=== PATIENT | female | born 1990 | race Caucasian/White ===

== ENCOUNTER → 2017-03-08 | Outpatient (CLI) | payer OTHER ==
--- NOTE | 2017-03-08 14:07 | Diagnostic Imaging Report ---
INDICATION: Size and dates. TECHNIQUE: Multiple real-time grayscale images were obtained over the gravid uterus. COMPARISON: None. FINDINGS: There is a single living intrauterine . The biometry correlates with gestational age of 18 weeks 6 days. Fetus is in available presentation. There is normal volume of amniotic fluid. Placenta is anterior. No previa. Anatomical survey is unremarkable. Heart rate is 144 beats per minute and regular. Cervical length is 4.1 cm. IMPRESSION: Single living intrauterine with sonographically estimated gestational age of 18 weeks 6 days and estimated date of confinement of 08/03/2017. Biometrical measurements are as follows: Biparietal 4.2 cm, age 18 weeks 6 days. Head circumference 15.3 cm, age 18 weeks 3 days. Abdominal circumference 13.4 cm, age 19 weeks 0 days. Femur length 2.87 cm, age 2.87 weeks 2.87 days. Sonographic estimate age: 6 weeks 18 days. Sonographic estimated date of delivery: 6. Estimated Weight: 258 gm (+/- 38 gm). LMP percentile: 33%. heart rate: 18 beats per minute. number: 1 of 1. Dictated by: Dictated on workstation # [id number]
== END ==
LOC: RAD 12:56
PROVIDERS: ATTEND Obstetrics & Gynecology
DX: Z34.92 Encounter for supervision of normal pregnancy, unspecified, second trimester (principal); Z3A.18 18 weeks gestation of pregnancy
CPT/HCPCS: 76805

== ENCOUNTER 2017-07-25 00:53 | Inpatient (IN) | payer OTHER ==
[~2017-07-25] VITALS: Ht 162.6 cm; Wt 75.3 kg
[2017-07-25] VITALS (38 sets, daily range): BP systolic 108–191; BP diastolic 63–87
[2017-07-25] MEDS ORDERED: PREN-37 PO (01:11)
[2017-07-25] MEDS ORDERED: DOCU-143 PO (01:12)
[2017-07-25] MEDS ORDERED: D5 LR IV SOLUTION 1,000 ML IV ONE (02:04)
[2017-07-25] MEDS ORDERED: D5 LR IV SOLUTION 1,000 ML IV SCH (02:10)
[2017-07-25] MEDS ORDERED: SUFENTA 0.6MCG/ML BUPIVA 0.125 100 ML ONE (02:22)
[2017-07-25 02:27] LABS: BASOPHILS % (AUTO) 0 % (0-10); EOSINOPHILS # (AUTO) 0.1 10^3/uL (0.0-0.3); EOSINOPHILS % (AUTO) 1 % (0-10); HEMATOCRIT 40 % (35-52); HEMOGLOBIN 13.7 G/DL (11.5-16.0); LYMPHOCYTES # (AUTO) 2.2 X 10^3 (1.0-4.0); LYMPHOCYTES % (AUTO) 15 % (12-44); MEAN CORPUSCULAR HEMOGLOBIN 31 PG (25-34); MEAN CORPUSCULAR HGB CONC 35 G/DL (32-36); MEAN CORPUSCULAR VOLUME 89 FL (80-99); MEAN PLATELET VOLUME 11.6 FL (7.4-10.4); MONOCYTES # (AUTO) 1.1 X 10^3 (0.0-1.0); MONOCYTES % (AUTO) 8 % (0-12); NEUTROPHILS # (AUTO) 11.7 X 10^3 (1.8-7.8); NEUTROPHILS % (AUTO) 77 % (42-75); PLATELET COUNT 224 10^3/uL (130-400); RED BLOOD COUNT 4.46 10^6/uL (4.35-5.85); RED CELL DISTRIBUTION WIDTH 13.7 % (10.0-14.5); WHITE BLOOD COUNT 15.2 10^3/uL (4.3-11.0)
[2017-07-25] MEDS ORDERED: BUPIVACAINE 0.25% 30 ML (SENSORCAINE) VIAL ONE (02:33)
[2017-07-25] MEDS ORDERED: fentaNYL INJECTION 100 MCG/2 ML AMP ONE (02:33)
[2017-07-25] MEDS ORDERED: MINERAL OIL CONCENTRATE 99.9% 15 ML UDC TOP PRN (03:00)
[2017-07-25] MEDS ORDERED: LACTATED RINGERS 1,000 ML IV SCH (03:15)
[2017-07-25] MEDS ORDERED: diphenhydrAMINE 50 MG/ML INJ (BENADRYL) IV PRN (03:15)
[2017-07-25] MEDS ORDERED: EPIDURAL (SUFENTA 0.6MCG/ML BUPIVA 0.125%) 100 ML BAG EPI PRN (03:15)
[2017-07-25] MEDS ORDERED: ONDANSETRON 4 MG/2 ML (SDV) Z0FRAN IV PRN (03:15)
[2017-07-25] MEDS ORDERED: METOCLOPRAMIDE INJ 10 MG/2 ML (REGLAN) IV PRN (03:15)
[2017-07-25] MEDS ORDERED: NALOXONE 0.4 MG/ML 1 ML (NARCAN) VIAL IV PRN ×2 (03:15)
[2017-07-25] MEDS ORDERED: OXYTOCIN/NORMAL SALINE 500 ML IV ONE ×2 (05:13→06:35)
[2017-07-25] MEDS ORDERED: LIDOCAINE/EPI 2% 1:200,00 (XYLOCAINE) 10 ML VIAL ONE (05:42)
[2017-07-25] MEDS: OXYTOCIN/NORMAL SALINE 500 ML IV SCH ×2 (06:09→07:46)
--- NOTE | 2017-07-25 06:25 | OB Labor & Delivery Record ---
L&D History Date of Service Date of Service: July 25, 2017 History Expected Date of Delivery: Aug 07, 2017 Gestational Age in Weeks: 38 Hx : 1 Hx Para: 0 Complications Events: Routine care Operative Indications (Cesarea: N/A-Vaginal Delivery Intrapartal Events: None L&D Stage1 Stage One Onset of Labor - Date: July 25, 2017 Monitors and Tracing Monitor Mode: External Heart Rate: 135 Monitor Accelerations: Uniform Monitor Decelerations: None Station: -2 Member Certification Manager Variability: Average (6-10) Short Term Variability: Present Presentation: Vertex Vital Signs VS - Last 72 Hours, by Label 07/25/17 07/25/17 07/25/17 07/25/17 01:10 02:46 02:49 02:52 Temp 98.3 Pulse 69 85 90 88 Resp 18 18 18 18 B/P (MAP) 129/86 (100) 123/72 (89) 151/85 (107) 153/86 (108) Pulse Ox 100 100 100 O2 Delivery Room Air Room Air Room Air Room Air 07/25/17 07/25/17 07/25/17 07/25/17 02:55 02:58 03:01 03:04 Pulse 88 85 81 Resp 18 18 18 B/P (MAP) 142/77 (98) 141/83 (102) 126/66 (86) 127/68 (87) Pulse Ox 96 99 99 O2 Delivery Room Air Room Air Room Air 07/25/17 07/25/17 07/25/17 07/25/17 03:07 03:10 03:13 03:16 Pulse 77 80 77 75 Resp 18 18 18 18 B/P (MAP) 118/83 (95) 117/64 (81) 114/63 (80) 114/65 (81) Pulse Ox 99 99 98 98 O2 Delivery Room Air Room Air Room Air Room Air 07/25/17 07/25/17 07/25/17 07/25/17 03:23 03:30 03:35 03:40 Pulse 74 76 82 77 Resp 18 18 18 18 B/P (MAP) 115/65 (82) 110/64 (79) 109/65 (80) 112/64 (80) Pulse Ox 98 98 99 99 O2 Delivery Room Air Room Air Room Air Room Air 07/25/17 07/25/17 07/25/17 5/27/18 03:45 03:50 03:55 04:00 Pulse 77 78 77 78 Resp 18 B/P (MAP) 108/63 (78) 108/69 (82) 114/68 (83) 116/70 (85) Pulse Ox 99 99 99 99 O2 Delivery Room Air Room Air Room Air Room Air 07/25/17 07/25/17 07/25/17 04:15 04:30 04:45 Temp 98.9 Pulse 83 74 81 Resp 18 18 18 B/P (MAP) 120/74 (89) 124/67 (86) 125/75 (92) Pulse Ox 99 99 99 O2 Delivery Room Air Room Air Room Air Rupture of Membranes Spontaneous Ruture of Membrane: Yes Amniotic Membrane Fluid Desc.: Clear Vaginal Bleeding Description: Normal Show Induction/Anesthesia Epidural Cath Placement - Time: 250 L&D Stage2 Stage Two Stage II Date: July 25, 2017 Monitors and Tracing Monitor Mode: External Heart Rate: 135 Monitor Decelerations: Variable Member Certification Manager Variability: Average (6-10) Short Term Variability: Present Position: Right Occiput Anterior Presentation: Vertex Signs of Distress by FHT Signs of Distress repetitive variable FHR decels after pushing down into the 80s with return to baseline, maternal O2 was given via mask. Cord Descript/Complications Cord Vessel Description: 3 Vessels Delivery Type Delivery Method: Spontaneous Vaginal Anterior Shoulder: Right Episiotomy/Perineal Laceration Laceraction(s)/Extensions: Yes Episiotomy Description: Right Mediolateral Location Modifier: Right Sutures Used: Vicryl Degree (describe repair) RML repaired in usual fashion using 3-0 and 2-0 vicryl suture Condition of Infant Delivery 1 minute Comment: 8 5 minute Comment: 9 Notes Live female infant jennie 6lbs 1oz Condition of Infant Condition of : Living Exam: No Observed Abnormalities Resuscitation Resuscitation: N/A - Spontaneous Resp L&D Stage3 Stage Three Stage III Date: July 25, 2017 Pictocin Pitocin Administration Comment: 30 mu wide open at delivery of placenta Placenta Delivery Placenta Delivery: Spontaneous Delivery Summary Summary Estimated blood loss (mL): 350 Attending at delivery: John Hardin DO Condition of Delivery Examined: Cervix Examined, Uterus Explored Post Hemorrhage: No Condition of Mother stable Condition of Infant (s) stable FENECH,JOHN S DO July 25, 2017 6:25 am
--- NOTE | 2017-07-25 06:28 | History & Physical-OB ---
OB - Chief Complaint & HPI Date/Time Date of Admission: Date of Admission: July 25, 2017 at 2:06 am Time Seen by Provider: 05:30 Chief Complaint/History OB-Reason for Admission/Chief: Onset of Labor Hx : 1 Hx Para: 0 Expected Date of Delivery: Aug 02, 2017 Gestational Age in Weeks: 38 Gestational Age in Days: 6 Admission Nurse Assessment Rev: Yes History of Labs O neg Antibody neg RI RPR NR HBsAg NR HIV NR GC neg GBS neg Allergies and Home Medications Allergies Coded Allergies: No Known Drug Allergies (Unverified , 07/25/17) Home Medications Docusate Sodium 100 Mg Capsule, 100 MG PO DAILY PRN, (Reported) Vit/Iron Fumarate/FA 1 Each Tablet, 1 EACH PO DAILY, (Reported) Patient Home Medication List Home Medication List Reviewed: Yes OB - History Hx of Present Care: Yes Ultrasounds: Normal mid trimester US Obstetrical Complications: None Medical Complications: None Obstetrical History Hx : 1 Hx Para: 0 Hx Total # of Abortions (Spona: 0 Patient Past Medical History n/a Social History/Family History Recent Infectious Disease Expo: No Alcohol Use: Denies Use Recreational Drug Use: No Immunizations Hepatitis B: Yes OB - Admission Exam Physical Exam Vitals: Vital Signs 07/25/17 07/25/17 04:15 04:45 Temp 98.9 Pulse 81 Resp 18 B/P (MAP) 125/75 (92) Pulse Ox 99 O2 Delivery Room Air HEENT: NCAT Heart: Rhythm Normal Lungs: Clear Abdomen: Gravid Extremities: Normal Reflexes: Normal Cervical Dilatation: 4cm Effacement: 100% Station: -1 Membranes: Intact Heart Rate: 130's Accelerations: Accelerations Present Decelerations: No Decelerations Short Term Variability: Present Mcc Variability: Average (6-25) Contractions on Admission: < 5 Minutes Apart Intensity: Firm Labs Laboratory Tests Test 07/25/17 02:15 Range/Units White Blood Count 15.2 H 4.3-11.0 10^3/uL Red Blood Count 4.46 4.35-5.85 10^6/uL Hemoglobin 13.7 11.5-16.0 G/DL Hematocrit 40 35-52 % Mean Corpuscular Volume 89 80-99 FL Mean Corpuscular Hemoglobin 31 25-34 PG Mean Corpuscular Hemoglobin Concent 35 32-36 G/DL Red Cell Distribution Width 13.7 10.0-14.5 % Platelet Count 224 130-400 10^3/uL Mean Platelet Volume 11.6 H 7.4-10.4 FL Neutrophils (%) (Auto) 77 H 42-75 % Lymphocytes (%) (Auto) 15 12-44 % Monocytes (%) (Auto) 8 0-12 % Eosinophils (%) (Auto) 1 0-10 % Basophils (%) (Auto) 0 0-10 % Neutrophils # (Auto) 11.7 H 1.8-7.8 X 10^3 Lymphocytes # (Auto) 2.2 1.0-4.0 X 10^3 Monocytes # (Auto) 1.1 H 0.0-1.0 X 10^3 Eosinophils # (Auto) 0.1 0.0-0.3 10^3/uL Basophils # (Auto) 0.0 0.0-0.1 10^3/uL OB - Assessment/Plan/Diagnosis Assessment Assessment: active labor Admission Dx 26 yo @ 38.6 Active labor GBS neg Admission Status: Inpatient Order (span 2 midnights) Reason for Inpatient Admission: 26 yo @ 38.6 Active labor GBS neg Plan Plan: Expectant Management EDUARDA BOSE DO July 25, 2017 6:28 am
[2017-07-25] MEDS ORDERED: TETANUS,DIPTH,PERTUSS P/F (BOOSTRIX) 0.5 ML VIAL IM ONE (06:30)
[2017-07-25] MEDS ORDERED: WITCH HAZEL(TUCKS) 40 EA JAR TOP PRN (06:30)
[2017-07-25] MEDS ORDERED: HYDROcodone/APAP 5 MG/325 MG (LORTAB) TAB PO PRN (06:30)
[2017-07-25] MEDS ORDERED: DIBUCAINE (NUPERCAINAL) 1% OINT 30 GM TOP PRN (06:30)
[2017-07-25] MEDS ORDERED: MEASLES,MUMPS,RUBELLA 1 EA INJ SQ ONE (06:30)
[2017-07-25] MEDS ORDERED: BENZOCAINE/MENTHOL (DERMOPLAST) 56 ML CAN TP PRN (06:30)
--- NOTE | 2017-07-25 06:31 | Discharge Inst-Women's Service ---
Discharge Inst-Women's Serv Depart Medication/Instructions New, Converted or Re-Newed RX: RX on Chart Consults/Follow Up Additional Follow Up: Yes Orders/Referrals Dr. Bose in 6 weeks Activity Activity: Activity as Tolerated Driving Instructions: No Driving for 1 Week NO SMOKING: NO SMOKING Nothing Inside Vagina: No Douching, No [place], No Tampons Diet Discharge Diet: No Restrictions Symptoms to Report to : Bleeding Excessive, Pain Increased, Fever Over 101 Degrees F, Vaginal Bleeding Increase, Questions/Concerns For Any Problems or Questions: Contact Your Physician Skin/Wound Care Bathing Instructions: Shower (or sitz baths x 2 weeks) EDUARDA BOSE DO July 25, 2017 6:31 am
[2017-07-25] MEDS ORDERED: ACHD5005 PO (06:32)
[2017-07-25] MEDS ORDERED: DIBU30OI TOP (06:32)
[2017-07-25] MEDS ORDERED: Benzocaine/Menthol TP (06:32)
[2017-07-25] MEDS ORDERED: FERR325T18 PO (06:32)
[2017-07-25] MEDS ORDERED: IBUP-844 PO (06:32)
[2017-07-25] MEDS ORDERED: DOCU100C37 PO (06:32)
[2017-07-25] MEDS: DOCUSATE SODIUM 100 MG (COLACE) CAP PO SCH ×2 (08:58→20:51)
[2017-07-25] MEDS: IBUPROFEN 600 MG (MOTRIN) TAB PO SCH ×3 (08:58→20:50)
[2017-07-25] MEDS: FERROUS SULF 325 MG (IRON) TAB PO SCH (08:59)
[2017-07-25] MEDS: PRENATAL VITAMIN 1 EA TAB PO SCH (08:59)
[2017-07-25] MEDS ORDERED: CATHETER FLUSH 10 ML SYR IV SCH (14:00)
[2017-07-26 00:05] VITALS: BP 122/81
[2017-07-26 03:35] VITALS: BP 127/85
[2017-07-26] MEDS: IBUPROFEN 600 MG (MOTRIN) TAB PO SCH ×2 (03:37→08:37)
[2017-07-26 06:39] LABS: BASOPHILS % (AUTO) 0 % (0-10); EOSINOPHILS # (AUTO) 0.2 10^3/uL (0.0-0.3); EOSINOPHILS % (AUTO) 2 % (0-10); HEMATOCRIT 31 % (35-52); HEMOGLOBIN 10.2 G/DL (11.5-16.0); LYMPHOCYTES # (AUTO) 2.3 X 10^3 (1.0-4.0); LYMPHOCYTES % (AUTO) 18 % (12-44); MEAN CORPUSCULAR HEMOGLOBIN 30 PG (25-34); MEAN CORPUSCULAR HGB CONC 33 G/DL (32-36); MEAN CORPUSCULAR VOLUME 92 FL (80-99); MONOCYTES % (AUTO) 8 % (0-12); NEUTROPHILS # (AUTO) 9.7 X 10^3 (1.8-7.8); NEUTROPHILS % (AUTO) 73 % (42-75); PLATELET COUNT 183 10^3/uL (130-400); RED BLOOD COUNT 3.42 10^6/uL (4.35-5.85); WHITE BLOOD COUNT 13.3 10^3/uL (4.3-11.0)
[2017-07-26 08:37] VITALS: BP 135/87
[2017-07-26] MEDS: FERROUS SULF 325 MG (IRON) TAB PO SCH (08:37)
[2017-07-26] MEDS: PRENATAL VITAMIN 1 EA TAB PO SCH (08:37)
[2017-07-26] MEDS: DOCUSATE SODIUM 100 MG (COLACE) CAP PO SCH (08:37)
--- NOTE | 2017-07-26 09:43 | Postpartum Progress Note ---
Note Note Day # 1 Subjective: Patient is without complaints. Ambulating, voiding. Tolerating a regular diet without nausea or vomiting. Normal lochia. Pain is well controlled with oral pain medications. Breast feeding. Objective: Vital Sign - Last 24 Hours 07/25/17 07/25/17 07/25/17 07/26/17 12:15 16:15 20:50 00:05 Temp 98.5 99.1 98.7 98.3 Pulse 104 77 91 95 Resp 18 16 18 18 B/P (MAP) 139/82 (101) 130/86 (101) 120/74 (89) 122/81 (95) Pulse Ox 100 97 100 98 O2 Delivery Room Air Room Air Room Air Room Air 07/26/17 07/26/17 03:35 08:37 Temp 97.7 98.1 Pulse 85 95 Resp 18 18 B/P (MAP) 127/85 (99) 135/87 (103) Pulse Ox 99 99 O2 Delivery Room Air Room Air Intake and Output 07/25/17 07/25/17 07/26/17 15:00 23:00 07:00 Intake Total 1000 ml Balance 1000 ml Physical Exam: General - Alert and oriented, no apparent distress Abdomen - Soft, appropriately tender to palpation, non-distended, fundus firm at umbilicus Extremities - no edema, negative Francisco Javier's bilaterally Assessment: PPD 1 NVD Acute blood loss anemia Plan: Routine care. Encourage breast feeding. Encourage ambulation. Ferrous sulfate supplementation. Plan for discharge today Vitals - Labs Vital Signs - I&O Vital Signs Date Time Temp Pulse Resp B/P (MAP) Pulse Ox O2 Delivery O2 Flow Rate FiO2 07/26/17 08:37 98.1 95 18 135/87 (103) 99 Room Air 07/26/17 03:35 97.7 85 18 127/85 (99) 99 Room Air 07/26/17 00:05 98.3 95 18 122/81 (95) 98 Room Air 07/25/17 20:50 98.7 91 18 120/74 (89) 100 Room Air 07/25/17 16:15 99.1 77 16 130/86 (101) 97 Room Air 07/25/17 12:15 98.5 104 18 139/82 (101) 100 Room Air I & O 07/26/17 07:00 Intake Total 1000 ml Balance 1000 ml Labs Laboratory Tests 07/26/17 06:20: White Blood Count 13.3H, Red Blood Count 3.42L, Hemoglobin 10.2#L, Hematocrit 31L, Mean Corpuscular Volume 92, Mean Corpuscular Hemoglobin 30, Mean Corpuscular Hemoglobin Concent 33, Red Cell Distribution Width 14.0, Platelet Count 183, Mean Platelet Volume 11.0H, Neutrophils (%) (Auto) 73, Lymphocytes (% ) (Auto) 18, Monocytes (%) (Auto) 8, Eosinophils (%) (Auto) 2, Basophils (%) ( Auto) 0, Neutrophils # (Auto) 9.7H, Lymphocytes # (Auto) 2.3, Monocytes # (Auto ) 1.0, Eosinophils # (Auto) 0.2, Basophils # (Auto) 0.0 EDUARDA BOSE DO July 26, 2017 9:43 am
--- NOTE | 2017-07-26 13:42 | Anesthesia-Regional Post-Op ---
Regional Patient Condition Mental Status: Alert, Oriented x3 Circulation: Same as Pre-Op Headache: Absent Sensation: Full Recovery Motor Block: Absent Post Op Complications Complications None Follow Up Care/Instructions Patient Instructions None needed. Anesthesia/Patient Condition Patient is doing well, no complaints, stable vital signs, no apparent adverse anesthesia problems. No complications reported per nursing. D/C home per [facility] [place] Criteria: No MONICA WRIGHT CRNA July 26, 2017 13:42
== END 2017-07-26 14:10 | disposition home or self-care (01) | DRG 775 ==
LOC: LDRP 00:53 → WSo 00:53 → LDRP 01:09 → WSo 02:06 → LDRP 08:46
PROVIDERS: ADMIT Obstetrics & Gynecology; ATTEND Obstetrics & Gynecology
PROC: 10E0XZZ Delivery of Products of Conception, External Approach (ICD-10-PCS; principal; 2017-07-25)
PROC: 0W8NXZZ Division of Female Perineum, External Approach (ICD-10-PCS; 2017-07-25)
DX: O76 Abnormality in fetal heart rate and rhythm complicating labor and delivery (principal); O99.03 Anemia complicating the puerperium; D62 Acute posthemorrhagic anemia; Z3A.38 38 weeks gestation of pregnancy; Z37.0 Single live birth
CPT/HCPCS: 36415; 85025; 86850; 86900; 86901; 99212

== ENCOUNTER → 2019-01-18 | Outpatient (CLI) | payer OTHER ==
[~2019-01-18] MED LIST: ACHD5005 PO; Benzocaine/Menthol TP; DIBU30OI TOP; DOCU-143 PO; DOCU100C37 PO; FERR325T18 PO; IBUP-844 PO; PREN-37 PO
--- NOTE | 2019-01-18 17:00 | Diagnostic Imaging Report ---
EXAM: OB ultrasound complete. DATE: January 18, 2019. COMPARISON: March 08, 2017. INDICATION: 28-year-old female, supervision of otherwise normal . FINDINGS: Multiple grayscale sonographic images were obtained of the gravid uterus. Overview: Within the uterus there is a single living gestation in cephalic position. There is positive movement and heart motion. heart rate was identified at 146 beats per minute. The amnionic fluid volume is normal with an amniotic fluid index of 12.9. The placenta is anterior and without previa. The cervical length is 5.0 cm. growth parameters are summarized in detail on the accompanying separate chart. The approximate mean gestational age by today's ultrasound measurements is 19 weeks 2 days +/- 1 week variability. Estimated weight based on today's measurements is 280. anatomic survey: There is no ventriculomegaly (the lateral ventricle measures 6 mm) the cerebellum, cavum septum pellucidum, falx, and cisterna magna are identified. Longitudinal images of the spine appear unremarkable. There is visualization of the stomach, kidneys and urinary bladder. The cardiac apex and stomach are on the same side of midline. There is a normal four-chamber view of the heart. There is a three-vessel cord with an unremarkable insertion into the abdominal wall. 4 extremities are seen. The upper lip is not well seen. IMPRESSION: 1. Single living intrauterine with approximate mean gestational age of 19 weeks 2 days +/- 1 week. 2. Unremarkable anatomic survey. Biometrical measurements are as follows: Biparietal 4.30 cm, age 19 weeks 1 days. Head circumference 16.09 cm, age 19 weeks 0 days. Abdominal circumference 13.70 cm, age 19 weeks 1 days. Femur length 3.03 cm, age 19 weeks 3 days. Sonographic estimate age: 19 weeks 2 days. Sonographic estimated date of delivery: 06/12/2019. Estimated Weight: 280 gm (+/- +/-41 gm). LMP percentile: 40%. heart rate: 146 beats per minute. number: 1 of 1. Dictated by: Dictated on workstation # [id number]
== END ==
LOC: RAD 15:17
PROVIDERS: ATTEND Nurse Practitioner Women's Health
DX: Z34.92 Encounter for supervision of normal pregnancy, unspecified, second trimester (principal); Z3A.19 19 weeks gestation of pregnancy
CPT/HCPCS: 76805

== ENCOUNTER 2019-06-13 08:31 | Inpatient (IN) | payer OTHER ==
[2019-06-13] VITALS (29 sets, daily range): BP systolic 116–161; BP diastolic 65–87
[~2019-06-13] VITALS: Ht 163 cm; Wt 70.5 kg
--- NOTE | 2019-06-13 08:35 | NUR ---
PRINCE TIRADO presented to unit via ambulation from home, accompanied by S.O., with c/o labor. PRINCE TIRADO weighed, gowned, voided, and to bed. EFHM and TOCO applied, VS taken. PRINCE TIRADO oriented to bed controls, call light, TV, heat, and A/C controls.
--- OUTSIDE RECORDS SUMMARY | 2019-06-13 08:36 | XMS REPORT | Continuity of Care Document ---
Author Organization Unknown Address Unknown Phone Unavailable Allergies Active Description Code Type Severity Reaction Onset Reported/Identified Relationship to Patient Clinical Status Yes No Known Drug Allergies [id number] Drug Allergy Unknown N/A 07/25/2017 Medications There is no data. Problems Date Dx Coded Attending Type Code Diagnosis Diagnosed By 03/09/2017 EDUARDA BOSE DO S Ot Z34.92 ENCNTR FOR SUPRVSN OF NORMAL PREG, UNSP, 03/09/2017 EDUARDA BOSE DO S Ot Z3A.18 18 WEEKS GESTATION OF 04/14/2017 EDUARDA BOSE DO S Ot Z34.92 ENCNTR FOR SUPRVSN OF NORMAL PREG, UNSP, 04/14/2017 EDUARDA BOSE DO S Ot Z3A.18 18 WEEKS GESTATION OF 07/25/2017 EDUARDA BOSE DO S Ot Z34.92 ENCNTR FOR SUPRVSN OF NORMAL PREG, UNSP, 07/25/2017 EDUARDA BOSE DO S Ot Z3A.18 18 WEEKS GESTATION OF 07/26/2017 EDUARDA BOSE DO S Ot D6 2 ACUTE POSTHEMORRHAGIC ANEMIA 07/26/2017 JUICE VIEIRA EDUARDA S Ot O7 6 ABNLT IN HEART RATE AND RHYTHM COM 07/26/2017 EDUARDA BOSE DO S Ot O99.03 ANEMIA COMPLICATING THE PUERPERIUM 07/26/2017 JUICE VIEIRA EDUARDA S Ot Z37.0 SINGLE LIVE 07/26/2017 JUICE VIEIRA EDUARDA S Ot Z3A.38 38 WEEKS GESTATION OF 01/18/2019 EDUARDA BOSE DO S Ot Z34.92 ENCNTR FOR SUPRVSN OF NORMAL PREG, UNSP, 01/18/2019 MASSIMOECH DO EDUARDA S Ot Z3A.18 18 WEEKS GESTATION OF 01/20/2019 LYNDON HOLLAND APRN Ot Z34.92 ENCNTR FOR SUPRVSN OF NORMAL PREG, UNSP, 01/20/2019 LYNDON HOLLAND OPERATOR AUTOMATED PROCESS Ot Z3A.19 19 WEEKS GESTATION OF 01/30/2019 AMALIALYNDON OPERATOR AUTOMATED PROCESS Ot Z34.92 ENCNTR FOR SUPRVSN OF NORMAL PREG, UNSP, 01/30/2019 LYNDON HOLLAND APRN Ot Z3A.19 19 WEEKS GESTATION OF Procedures Code Description Performed By Per suzy On [id number] DI VISION OF FEMALE PERINEUM, EXTERNAL AP 07/25/2017 [id number] DE LIVERY OF PRODUCTS OF CONCEPTION, EXTE 07/25/2017 Results Test Result Range Complete blood count (CBC) with automate d white blood cell (WBC) differential - 07/25/17 02:15 Blood leukocytes automated count (number/volume) 15.2 10*3/uL 4.3-11.0 Blood erythrocytes automated count (number/volume) 4.46 10*6/uL 4.35-5.85 Venous blood hemoglobin measurement (mass/volume) 13.7 g/dL 11.5-16.0 Blood hematocrit (volume fraction) 40 % 35-52 Automated erythrocyte mean corpuscular volume 89 [ foz_us] 80-99 Automated erythrocyte mean corpuscular h emoglobin (mass per erythrocyte) 31 pg 25-34 Automated erythrocyte mean corpuscular h emoglobin concentration measurement (mass/volume) 35 g/dL 32-36 Automated erythrocyte distribution width ratio 13. 7 % 10.0- 14.5 Automated blood platelet count (count/volume) 224 10*3/uL 130-400 Automated blood platelet mean volume measurement 11.6 [foz_us] 7.4-10.4 Automated blood neutrophils/100 leukocytes 77 % 42-75 Automated blood lymphocytes/100 leukocytes 15 % 12-44 Blood monocytes/100 leukocytes 8 % 0-12 Automated blood eosinophils/100 leukocytes 1 % 0-10 Automated blood basophils/100 leukocytes 0 % 0-10 Blood neutrophils automated count (number/volume) 11.7 10*3 1.8-7.8 Blood lymphocytes automated count (number/volume) 2.2 10*3 1.0-4.0 Blood monocytes automated count (number/volume) 1. 1 10*3 0.0-1.0 Automated eosinophil count 0.1 10*3/uL 0 .0-0.3 Automated blood basophil count (count/volume) 0.0 10*3/uL 0.0-0.1 Blood type T Indirect antibody screen [facility] - 07/25/17 02:15 ABO+Rh group ON NRG Transfusion band number [id number] NRG Blood group antibody screen NEGATIVE NR G Complete blood count (CBC) with automate d white blood cell (WBC) differential - 07/26/17 06:20 Blood leukocytes automated count (number/volume) 13.3 10*3/uL 4.3-11.0 Blood erythrocytes automated count (number/volume) 3.42 10*6/uL 4.35-5.85 Venous blood hemoglobin measurement (mass/volume) 10.2 g/dL 11.5-16.0 Blood hematocrit (volume fraction) 31 % 35-52 Automated erythrocyte mean corpuscular volume 92 [ foz_us] 80-99 Automated erythrocyte mean corpuscular h emoglobin (mass per erythrocyte) 30 pg 25-34 Automated erythrocyte mean corpuscular h emoglobin concentration measurement (mass/volume) 33 g/dL 32-36 Automated erythrocyte distribution width ratio 14. 0 % 10.0- 14.5 Automated blood platelet count (count/volume) 183 10*3/uL 130-400 Automated blood platelet mean volume measurement 11.0 [foz_us] 7.4-10.4 Automated blood neutrophils/100 leukocytes 73 % 42-75 Automated blood lymphocytes/100 leukocytes 18 % 12-44 Blood monocytes/100 leukocytes 8 % 0-12 Automated blood eosinophils/100 leukocytes 2 % 0-10 Automated blood basophils/100 leukocytes 0 % 0-10 Blood neutrophils automated count (number/volume) 9.7 10*3 1.8-7.8 Blood lymphocytes automated count (number/volume) 2.3 10*3 1.0-4.0 Blood monocytes automated count (number/volume) 1. 0 10*3 0.0-1.0 Automated eosinophil count 0.2 10*3/uL 0 .0-0.3 Automated blood basophil count (count/volume) 0.0 10*3/uL 0.0-0.1 Encounters ACCT No. Visit Date/Time Discharge Status Pt. Type Provider Facility Loc./Unit Complaint [id number] 01/18/2019 15:17:00 019 23:59:59 CLS Outpatient LYNDON HOLLAND APRN [facility] RAD [id number] 07/25/2017 02:06:00 018 14:10:00 DIS Inpatient EDUARDA BOSE DO [facility] LDRP LABOR [id number] 03/08/2017 12:56:00 018 23:59:59 CLS Outpatient EDUARDA BOSE DO [facility] RAD
[2019-06-13] MEDS ORDERED: D5 LR IV SOLUTION 1,000 ML IV ONE (08:47)
[2019-06-13] MEDS: D5 LR IV SOLUTION 1,000 ML IV SCH (09:15)
[2019-06-13 09:29] LABS: BASOPHILS % (AUTO) 0 % (0-10); EOSINOPHILS # (AUTO) 0.1 10^3/uL (0.0-0.3); EOSINOPHILS % (AUTO) 1 % (0-10); HEMATOCRIT 40 % (35-52); HEMOGLOBIN 12.8 G/DL (11.5-16.0); LYMPHOCYTES # (AUTO) 1.7 X 10^3 (1.0-4.0); LYMPHOCYTES % (AUTO) 17 % (12-44); MEAN CORPUSCULAR HEMOGLOBIN 30 PG (25-34); MEAN CORPUSCULAR HGB CONC 32 G/DL (32-36); MEAN CORPUSCULAR VOLUME 91 FL (80-99); MEAN PLATELET VOLUME 10.6 FL (7.4-10.4); MONOCYTES # (AUTO) 0.6 X 10^3 (0.0-1.0); MONOCYTES % (AUTO) 6 % (0-12); NEUTROPHILS % (AUTO) 77 % (42-75); PLATELET COUNT 197 10^3/uL (130-400); RED CELL DISTRIBUTION WIDTH 14.1 % (10.0-14.5); WHITE BLOOD COUNT 10.5 10^3/uL (4.3-11.0)
[2019-06-13] MEDS ORDERED: MINERAL OIL CONCENTRATE 99.9% 15 ML UDC TOP PRN (09:30)
[2019-06-13] MEDS ORDERED: fentaNYL 2 mcg/ml BUPIVA 0.125 100 ML ONE (09:44)
--- NOTE | 2019-06-13 09:53 | NUR ---
Shelton Gusman CRNA here for epidural placement. Procedure explained, consent reviewed and signed by anesthesia. Questions answered to patient's satisfaction. Time out taken to verify correct patient/procedure. Patient up to side of bed, assisted into sitting position. Betadine prep done x3 and sterile drape applied. Local done, see anesthesia record. Test dose given, see anesthesia record for drug and dosage. Epidural catheter secured in place. Epidural placement complete. Assisted back into bed, monitors adjusted. Epidural dosed, see anesthesia record. Epidural of Sufenta/Bupvicaine @12cc/hr stated per pump. Patient tolerated procedure well.
[2019-06-13] MEDS ORDERED: fentaNYL INJECTION 100 MCG/2 ML AMP ONE (10:11)
[2019-06-13] MEDS ORDERED: LACTATED RINGERS 1,000 ML IV ONE (10:38)
[2019-06-13] MEDS ORDERED: EPIDURAL (fentaNYL 2 MCG/ML BUPIVA 0.125%)100 ML BAG EPI PRN (10:45)
[2019-06-13] MEDS ORDERED: ONDANSETRON 4 MG/2 ML (SDV) Z0FRAN IV PRN (10:45)
[2019-06-13] MEDS ORDERED: NALOXONE 0.4 MG/ML 1 ML (NARCAN) VIAL IV PRN ×2 (10:45)
[2019-06-13] MEDS ORDERED: diphenhydrAMINE 50 MG/ML INJ (BENADRYL) IV PRN (10:45)
[2019-06-13] MEDS ORDERED: METOCLOPRAMIDE INJ 10 MG/2 ML (REGLAN) IV PRN (10:45)
--- NOTE | 2019-06-13 11:04 | History & Physical-OB ---
OB - Chief Complaint & HPI Date/Time Date of Admission: Date of Admission: Jun 13, 2019 at 8:31 am Date seen by a Provider: Jun 13, 2019 Time Seen by a Provider: 08:15 Chief Complaint/History OB-Reason for Admission/Chief: Onset of Labor Hx : 2 Hx Para: 1 Expected Date of Delivery: Jun 12, 2019 Gestational Age in Weeks: 40 Gestational Age in Days: 1 Admission Nurse Assessment Rev: Yes History of Labs O neg Antibody neg RI RPR NR HBsAg NR HIV NR GC neg GBS neg Allergies and Home Medications Allergies Coded Allergies: No Known Drug Allergies (Unverified , 07/25/17) Home Medications Vit/Iron Fumarate/FA 1 Each Tablet, 1 EACH PO DAILY, (Reported) Patient Home Medication List Home Medication List Reviewed: Yes OB - History Hx of Present Care: Yes Ultrasounds: Normal mid trimester US Obstetrical Complications: None Medical Complications: None Patient Past Medical History n/a Social History/Family History HIV/AIDS: No Sexually Transmitted Disease: No Alcohol Use: Denies Use Recreational Drug Use: No Immunizations Hepatitis A: Yes Hepatitis B: Yes OB - Admission Exam Physical Exam HEENT: NCAT Heart: Rhythm Normal Lungs: Clear Abdomen: Gravid Extremities: Normal Reflexes: Normal Cervical Dilatation: 5cm Effacement: 75% Station: -1 Membranes: Intact Heart Rate: 130's Accelerations: Accelerations Present Decelerations: No Decelerations Short Term Variability: Present Custodial Variability: Average (6-25) Contractions on Admission: 6-10 Minutes Apart Intensity: Firm Labs Laboratory Tests Test 06/13/19 09:15 Range/Units White Blood Count 10.5 4.3-11.0 10^3/uL Red Blood Count 4.34 L 4.35-5.85 10^6/uL Hemoglobin 12.8 11.5-16.0 G/DL Hematocrit 40 35-52 % Mean Corpuscular Volume 91 80-99 FL Mean Corpuscular Hemoglobin 30 25-34 PG Mean Corpuscular Hemoglobin Concent 32 32-36 G/DL Red Cell Distribution Width 14.1 10.0-14.5 % Platelet Count 197 130-400 10^3/uL Mean Platelet Volume 10.6 H 7.4-10.4 FL Neutrophils (%) (Auto) 77 H 42-75 % Lymphocytes (%) (Auto) 17 12-44 % Monocytes (%) (Auto) 6 0-12 % Eosinophils (%) (Auto) 1 0-10 % Basophils (%) (Auto) 0 0-10 % Neutrophils # (Auto) 8.0 H 1.8-7.8 X 10^3 Lymphocytes # (Auto) 1.7 1.0-4.0 X 10^3 Monocytes # (Auto) 0.6 0.0-1.0 X 10^3 Eosinophils # (Auto) 0.1 0.0-0.3 10^3/uL Basophils # (Auto) 0.0 0.0-0.1 10^3/uL OB - Assessment/Plan/Diagnosis Assessment Assessment: active labor Admission Dx 28 yo @ 40.1 weeks Active labor GBS neg Admission Status: Inpatient Order (span 2 midnights) Reason for Inpatient Admission: Spontaneous active labor at term Plan Plan: Expectant Management Other Plan Epidural at patient request, will AROM once more comfortable EDUARDA BOSE DO Jun 13, 2019 11:04 am
[2019-06-13] MEDS ORDERED: OXYTOCIN PRE-MIX DRIP 500 ML IV ONE ×2 (11:48→12:56)
[2019-06-13] MEDS ORDERED: LIDOCAINE/EPI 2% 1:200,00 (XYLOCAINE) 10 ML VIAL ONE (12:07)
[2019-06-13] MEDS: OXYTOCIN PRE-MIX DRIP 500 ML IV SCH ×2 (12:31→13:04)
[2019-06-13] MEDS ORDERED: HYDROcodone/APAP 5 MG/325 MG (LORTAB) TAB PO PRN (13:30)
[2019-06-13] MEDS ORDERED: WITCH HAZEL(TUCKS) 40 EA JAR TOP PRN (13:30)
[2019-06-13] MEDS ORDERED: BENZOCAINE/MENTHOL (DERMOPLAST) 60 ML CAN TP PRN (13:30)
[2019-06-13] MEDS ORDERED: TETANUS,DIPTH,PERTUSS P/F (BOOSTRIX) 0.5 ML VIAL IM ONE (13:30)
[2019-06-13] MEDS ORDERED: MEASLES,MUMPS,RUBELLA 1 EA INJ SQ ONE (13:30)
--- NOTE | 2019-06-13 13:37 | OB Labor & Delivery Record ---
L&D History Date of Service Date of Service: Jun 13, 2019 History Expected Date of Delivery: Jun 12, 2019 Gestational Age in Weeks: 40 Hx : 2 Hx Para: 1 Complications Events: Routine care Operative Indications (Cesarea: N/A-Vaginal Delivery Intrapartal Events: None L&D Stage1 Stage One Onset of Labor - Date: Jun 13, 2019 Monitors and Tracing Monitor Mode: External Heart Rate: 145 Monitor Accelerations: Uniform Monitor Decelerations: None Station: -2 In Processing Instructor Variability: Average (6-10) Short Term Variability: Present Presentation: Vertex Vital Signs VS - Last 72 Hours, by Label 06/13/19 06/13/19 06/13/19 06/13/19 08:50 10:00 10:05 10:10 Temp 36.7 Pulse 101 93 96 83 Resp 22 20 20 20 B/P (MAP) 141/86 (104) 148/85 (106) 142/86 (104) Pulse Ox 99 98 100 100 O2 Delivery Room Air 06/13/19 06/13/19 06/13/19 06/13/19 10:15 10:30 10:33 10:36 Pulse 113 90 96 101 Resp 20 20 20 20 B/P (MAP) 133/81 (98) 127/76 (93) 131/78 (95) 138/82 (100) Pulse Ox 100 99 100 06/13/19 06/13/19 06/13/19 06/13/19 10:39 10:41 10:49 10:52 Pulse 77 85 86 83 Resp 20 20 20 20 B/P (MAP) 144/87 (106) 136/80 (98) 127/80 (96) 129/80 (96) Pulse Ox 100 99 99 99 06/13/19 06/13/19 06/13/19 06/13/19 10:57 11:03 11:08 11:12 Temp 36.4 Pulse 83 83 91 82 Resp 20 20 20 20 B/P (MAP) 132/76 (94) 135/81 (99) 135/83 (100) 132/79 (96) Pulse Ox 100 99 99 98 06/13/19 06/13/19 06/13/19 06/13/19 11:30 11:45 11:50 12:00 Pulse 82 74 74 93 Resp 20 20 20 20 B/P (MAP) 116/68 (84) 118/65 (82) 118/65 (82) 139/80 (99) Pulse Ox 100 100 100 06/13/19 06/13/19 12:15 12:28 Temp 36.5 Pulse 126 97 Resp 20 20 B/P (MAP) 161/72 (101) 131/66 (87) Rupture of Membranes Spontaneous Ruture of Membrane: No Amniotic Membrane Rupture Time: 10:35 Amniotic Membrane Fluid Desc.: Clear Vaginal Bleeding Description: Normal Show Induction/Anesthesia Epidural Cath Placement - Time: 1006 L&D Stage2 Stage Two Stage II Date: Jun 13, 2019 Monitors and Tracing Heart Rate: 135 Monitor Decelerations: Variable In Processing Instructor Variability: Average (6-10) Position: Right Occiput Anterior Presentation: Vertex Cord Descript/Complications Cord Vessel Description: 3 Vessels Delivery Type Delivery Method: Spontaneous Vaginal Anterior Shoulder: Right Episiotomy/Perineal Laceration Laceraction(s)/Extensions: Yes Episiotomy Description: 2nd degree Degree (describe repair) 2nd degree perineal/vaginal laceration repaired using 3-0 rapide in usual fashion Condition of Infant Delivery 1 minute Comment: 9 5 minute Comment: 9 Notes Live male infant weight 8lbs 4 oz Condition of Condition of Infant: Living Exam: No Observed Abnormalities Resuscitation Resuscitation: N/A - Spontaneous Resp L&D Stage3 Stage Three Stage III Date: Jun 13, 2019 Pictocin Pitocin Administration Comment: 30 mu wide open at delivery of placenta Placenta Delivery Placenta Delivery: Spontaneous Delivery Summary Summary Estimated blood loss (mL): 350 Attending at delivery: Eduarda Bose DO Condition of Delivery Examined: Cervix Examined, Uterus Explored Post Hemorrhage: No Condition of Mother stable Condition of Infant (s) stable EDUARDA BOSE DO Jun 13, 2019 1:37 pm
[2019-06-13] MEDS ORDERED: CATHETER FLUSH 10 ML SYR IV SCH ×2 (14:00)
--- NOTE | 2019-06-13 15:00 | NUR ---
FFU+1, light-moderate rubra lochia noted. Pt voices need to void. Pt assisted to standing at bedside and ambulates to bathroom without incident. +void. Periare performed. FFU/1 after void. Tucks and dermaplast applied. Fresh vpad and underwear applied. Fresh gown on. Pt gathering personal belongings and ambulates to PP room 304 accompanied by RN, S.O. and infant along with all personal belongings. Pt oriented to room and call light. packet explained. Pt denies needs or concerns at this time. Pt notified of staff changes and cares assumed by Bill Durán RN.
--- NOTE | 2019-06-13 15:07 | NUR ---
Report received from VERONICA Merino. care assumed of pt.
[2019-06-13] MEDS: IBUPROFEN 600 MG (MOTRIN) TAB PO SCH ×2 (15:14→21:19)
--- NOTE | 2019-06-13 18:00 | NUR ---
up to shower. @ side.
--- NOTE | 2019-06-13 19:10 | NUR ---
report given to VERONICA Whittington.
[2019-06-13] MEDS: DOCUSATE SODIUM 100 MG (COLACE) CAP PO SCH (21:19)
[2019-06-14] VITALS: BP 101/60
[2019-06-14] MEDS: D5 LR IV SOLUTION 1,000 ML IV SCH (01:23)
[2019-06-14 04:00] VITALS: BP 117/70
[2019-06-14] MEDS: IBUPROFEN 600 MG (MOTRIN) TAB PO SCH ×2 (04:11→11:01)
[2019-06-14 05:28] LABS: BASOPHILS % (AUTO) 0 % (0-10); EOSINOPHILS # (AUTO) 0.2 10^3/uL (0.0-0.3); EOSINOPHILS % (AUTO) 1 % (0-10); HEMATOCRIT 35 % (35-52); HEMOGLOBIN 11.4 G/DL (11.5-16.0); LYMPHOCYTES # (AUTO) 2.2 X 10^3 (1.0-4.0); LYMPHOCYTES % (AUTO) 17 % (12-44); MEAN CORPUSCULAR HEMOGLOBIN 30 PG (25-34); MEAN CORPUSCULAR HGB CONC 33 G/DL (32-36); MEAN CORPUSCULAR VOLUME 91 FL (80-99); MEAN PLATELET VOLUME 10.6 FL (7.4-10.4); MONOCYTES % (AUTO) 8 % (0-12); NEUTROPHILS # (AUTO) 9.8 X 10^3 (1.8-7.8); NEUTROPHILS % (AUTO) 74 % (42-75); PLATELET COUNT 159 10^3/uL (130-400); RED CELL DISTRIBUTION WIDTH 14.3 % (10.0-14.5); WHITE BLOOD COUNT 13.2 10^3/uL (4.3-11.0)
[2019-06-14] MEDS ORDERED: PRENATAL VITAMIN 1 EA TAB PO SCH (07:00)
[2019-06-14] MEDS ORDERED: HYDR-83 PO (07:58)
[2019-06-14] MEDS ORDERED: BENZ78AE2 TP (07:58)
[2019-06-14] MEDS ORDERED: DCS100C PO (07:58)
[2019-06-14] MEDS ORDERED: IBUP-844 PO (07:58)
[2019-06-14] MEDS ORDERED: FERROUS SULF 325 MG (IRON) TAB PO SCH (08:00)
--- NOTE | 2019-06-14 08:00 | Discharge Inst-Women's Service ---
Discharge Inst-Women's Serv Depart Medication/Instructions New, Converted or Re-Newed RX: RX on Chart Final Diagnosis ppd1 nvd Problems Reviewed?: Yes Consults/Follow Up Additional Follow Up: Yes Orders/Referrals Dr. Bose Activity Activity: Activity as Tolerated Driving Instructions: No Driving for 1 Week NO SMOKING: NO SMOKING Nothing Inside Vagina: No Douching, No [place], No Tampons Diet Discharge Diet: No Restrictions Symptoms to Report to : Bleeding Excessive, Pain Increased, Fever Over 101 Degrees F, Vaginal Bleeding Increase, Questions/Concerns For Any Problems or Questions: Contact Your Physician EDUARDA BOSE DO Jun 14, 2019 08:00
[2019-06-14] MEDS: DOCUSATE SODIUM 100 MG (COLACE) CAP PO SCH (08:42)
--- NOTE | 2019-06-14 08:45 | NUR ---
initial shift assessment completed, see interventions for further.
--- NOTE | 2019-06-14 09:12 | Postpartum Progress Note ---
Note Note Day # 1 Subjective: Patient is without complaints. Ambulating, voiding. Tolerating a regular diet without nausea or vomiting. Normal lochia. Pain is well controlled with oral pain medications. Objective: Physical Exam: General - Alert and oriented, no apparent distress Abdomen - Soft, appropriately tender to palpation, non-distended, fundus firm at umbilicus Extremities - no edema, negative Francisco Javier's bilaterally Assessment: PPD 1 NVD Acute blood loss anemia Plan: Routine care. Encourage breast feeding. Encourage ambulation. Ferrous sulfate supplementation. Plan for discharge today Vitals - Labs Vital Signs - I&O Vital Signs Date Time Temp Pulse Resp B/P (MAP) Pulse Ox O2 Delivery O2 Flow Rate FiO2 06/14/19 04:00 36.5 92 18 117/70 (86) 99 Room Air 06/14/19 00:00 36.4 79 18 101/60 (74) 100 Room Air 06/13/19 20:00 36.7 85 18 121/85 (97) 100 Room Air 06/13/19 14:25 36.9 94 20 118/72 (87) 06/13/19 14:13 88 20 138/65 (89) 06/13/19 13:42 88 20 120/79 (93) 06/13/19 13:27 85 20 124/72 (89) 06/13/19 13:12 77 20 119/74 (89) 06/13/19 12:58 90 20 117/70 (86) 06/13/19 12:28 36.5 97 20 131/66 (87) 06/13/19 12:15 126 20 161/72 (101) 06/13/19 12:00 93 20 139/80 (99) 06/13/19 11:50 74 20 118/65 (82) 100 06/13/19 11:45 74 20 118/65 (82) 100 06/13/19 11:30 82 20 116/68 (84) 100 06/13/19 11:12 36.4 82 20 132/79 (96) 98 06/13/19 11:08 91 20 135/83 (100) 99 06/13/19 11:03 83 20 135/81 (99) 99 06/13/19 10:57 83 20 132/76 (94) 100 06/13/19 10:52 83 20 129/80 (96) 99 06/13/19 10:49 86 20 127/80 (96) 99 06/13/19 10:41 85 20 136/80 (98) 99 06/13/19 10:39 77 20 144/87 (106) 100 06/13/19 10:36 101 20 138/82 (100) 100 06/13/19 10:33 96 20 131/78 (95) 06/13/19 10:30 90 20 127/76 (93) 99 06/13/19 10:15 113 20 133/81 (98) 100 06/13/19 10:10 83 20 142/86 (104) 100 06/13/19 10:05 96 20 148/85 (106) 100 06/13/19 10:00 93 20 141/86 (104) 98 Labs Laboratory Tests 06/13/19 09:15: White Blood Count 10.5, Red Blood Count 4.34L, Hemoglobin 12.8, Hematocrit 40, Mean Corpuscular Volume 91, Mean Corpuscular Hemoglobin 30, Mean Corpuscular Hemoglobin Concent 32, Red Cell Distribution Width 14.1, Platelet Count 197, Mean Platelet Volume 10.6H, Neutrophils (%) (Auto) 77H, Lymphocytes (%) (Auto) 17, Monocytes (%) (Auto) 6, Eosinophils (%) (Auto) 1, Basophils (%) (Auto) 0, Neutrophils # (Auto) 8.0H, Lymphocytes # (Auto) 1.7, Monocytes # (Auto) 0.6, Eosinophils # (Auto) 0.1, Basophils # (Auto) 0.0 06/14/19 04:41: White Blood Count 13.2H, Red Blood Count 3.82L, Hemoglobin 11.4L, Hematocrit 35, Mean Corpuscular Volume 91, Mean Corpuscular Hemoglobin 30, Mean Corpuscular Hemoglobin Concent 33, Red Cell Distribution Width 14.3, Platelet Count 159, Mean Platelet Volume 10.6H, Neutrophils (%) (Auto) 74, Lymphocytes (%) (Auto) 17, Monocytes (%) (Auto) 8, Eosinophils (%) (Auto) 1, Basophils (%) (Auto) 0, Neutrophils # (Auto) 9.8H, Lymphocytes # (Auto) 2.2, Monocytes # (Auto) 1.0, Eosinophils # (Auto) 0.2, Basophils # (Auto) 0.0 EDUARDA BOSE DO Jun 14, 2019 09:11
--- NOTE | 2019-06-14 10:32 | Anesthesia-Regional Post-Op ---
Regional Patient Condition Mental Status: Alert, Oriented x3 Circulation: Same as Pre-Op Headache: Absent Sensation: Full Recovery Motor Block: Absent Post Op Complications Complications None Follow Up Care/Instructions Patient Instructions None needed. Anesthesia/Patient Condition Patient is doing well, no complaints, stable vital signs, no apparent adverse anesthesia problems. No complications reported per nursing. TOMAS RUDD CRNA Jun 14, 2019 10:32
--- NOTE | 2019-06-14 11:27 | NUR ---
dismissal instructions given, verbalizes understanding. reviewed Rx's and follow up appointment. signature page signed, placed on chart.
--- NOTE | 2019-06-14 14:18 | NUR ---
[facility] Rx called into [facility] per request.
[2019-06-14 14:25] VITALS: BP 125/73
== END 2019-06-14 16:00 | disposition home or self-care (01) | DRG 806 ==
LOC: WS 08:31 → LDRP 08:35 → WS 16:29
PROVIDERS: ADMIT Obstetrics & Gynecology; ATTEND Obstetrics & Gynecology
PROC: 10E0XZZ Delivery of Products of Conception, External Approach (ICD-10-PCS; principal; 2019-06-13)
PROC: 0KQM0ZZ Repair Perineum Muscle, Open Approach (ICD-10-PCS; 2019-06-13)
DX: O48.0 Post-term pregnancy (principal); O70.1 Second degree perineal laceration during delivery; O90.81 Anemia of the puerperium; D62 Acute posthemorrhagic anemia; Z37.0 Single live birth; Z3A.40 40 weeks gestation of pregnancy
CPT/HCPCS: 36415; 85025; 86850; 86900; 86901; 99212

== ENCOUNTER → 2022-02-09 | Outpatient (CLI) | payer OTHER ==
[~2022-02-09] MED LIST changes: +BENZ78AE5 TP; +DOCU-239 PO
--- NOTE | 2022-02-09 12:49 | Diagnostic Imaging Report ---
INDICATION: L FOOT PAIN INJURY - IT WAS STEPPED ON MONTHS AGO. COMPARISON: None. FINDINGS: Three views of the left foot demonstrate no acute fracture or dislocation. There are no focal osseous lesions. There is no soft tissue swelling. Joint spaces are well maintained. No radiopaque foreign bodies are seen. IMPRESSION: No acute fractures or dislocations of the left foot. Dictated by: Dictated on workstation # [id number]
== END ==
LOC: RAD 11:43
PROVIDERS: ATTEND Family Medicine
DX: S99.922D Unspecified injury of left foot, subsequent encounter (principal); X58.XXXD Exposure to other specified factors, subsequent encounter
CPT/HCPCS: 73630

== ENCOUNTER → 2022-05-29 | Outpatient (RCR) | payer OTHER | END | disposition home or self-care (01) | PROVIDERS: ATTEND Physical Therapist | DX: M54.50 Low back pain, unspecified (principal); M79.672 Pain in left foot ==

== ENCOUNTER 2022-06-19 12:56 | Outpatient (RCR) | payer OTHER | END 2022-06-28 | disposition home or self-care (01) | PROVIDERS: ATTEND Physical Therapist | DX: M54.50 Low back pain, unspecified (principal); M79.672 Pain in left foot ==

== ENCOUNTER 2022-06-30 13:30 | Outpatient (RCR) | payer OTHER | END 2022-07-29 | disposition home or self-care (01) | PROVIDERS: ATTEND Physical Therapist | DX: M54.50 Low back pain, unspecified (principal); M79.672 Pain in left foot ==

== ENCOUNTER → 2022-12-25 | Outpatient (CLI) | payer OTHER | LOC: LAB 11:54 | PROVIDERS: ATTEND Family Medicine | DX: R00.0 Tachycardia, unspecified (principal); F41.9 Anxiety disorder, unspecified | CPT/HCPCS: 36415; 84436; 84443; 84480; 86376; 86800 ==